=== PATIENT | female | born 1940 | race Caucasian/White ===

== ENCOUNTER 2016-12-27 05:34 | Day surgery (SDC) | payer MEDICARE, BC ==
[2016-12-25 12:31] LABS: HEMATOCRIT 38.2 % (36.0-48.0); HEMOGLOBIN 12.5 g/dL (12-16); MCH 32.7 pg (26.0-34.0); MCHC 32.7 g/dL (31.0-37.0); MEAN PLATELET VOLUME 9.3 fL (7.4-10.4); PLATELET COUNT 231 10x3/uL (130-400); RBC 3.82 10x6/uL (4.00-5.40); RDW 16.1 % (11.5-14.5); WBC 2.5 10x3/uL (4.8-10.8)
[2016-12-25 12:41] LABS: INR 1.04 (0.85-1.17); PROTIME 13.5 SECONDS (11.6-15.0)
[2016-12-25 12:46] LABS: ANION GAP 15.2 mmol/L (8-16); CALCIUM 9.2 mg/dL (8.5-10.1); CARBON DIOXIDE 26.1 mmol/L (21.0-32.0); CREATININE - SERUM 0.9 mg/dL (0.6-1.3); POTASSIUM - SERUM 4.3 mmol/L (3.5-5.1)
[2016-12-25 13:20] LABS: BASOPHILS 1 % (0.0-2.0); EOSINOPHILS 1 % (0-7); LYMPHOCYTES 27 % (15-50); MONOCYTES 6 % (2-11); NEUTROPHILS 65 % (40-80); PLATELET ESTIMATE NORMAL; ROULEAUX OCC
[~2016-12-27] VITALS: Ht 149.9 cm; Wt 103.0 kg
[~2016-12-27 05:34] MED LIST: ATIVAN1 MG PO; FEMARA2.5 MG PO; FUROSEMIDE40 MG PO; GLUCOPHAGE500 MG PO; GLUCOTROL 5 MG T5 MG PO; IBRANCE 125 MG PO; NORVASC10 MG PO; PINDOLOL10 MG PO; ZOCOR20 MG PO
[2016-12-27 06:58] VITALS: BP 144/85; Ht 149.9 cm; Wt 103.0 kg
--- NOTE | 2016-12-27 09:36 | NUR ---
PORT PLACED RIGHT CHEST CONFIRMED WITH XRAY
[2016-12-27] MEDS ORDERED: ULTRAM50 MG PO (09:59)
--- NOTE | 2016-12-27 10:05 | NUR ---
CHRONIC LEFT HIP PAIN. SHE DENIES PAIN IN OPERATIVE SITE.
--- NOTE | 2016-12-27 10:09 | NUR ---
PRE OP BP 164/90
--- NOTE | 2016-12-27 10:20 | NUR ---
THE PATIENT REPORTS SHE USES 4LPM OF O2 AT HOME LEW SHE SLEEPS
--- NOTE | 2017-01-05 07:35 | OP ---
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 OPERATION PERFORMED: Removal of heavily calcified left internal jugular venous access port and catheter and then insertion of new right internal jugular venous access port, a [employer], CT injection capable port under ultrasound and fluoroscopic guidance and all done under local anesthesia with sedation and monitoring per Dr. Spring. MEDICAL ONCOLOGIST: Gonsalo Felix MD PRIMARY CARE PHYSICIAN: Dr. Quiñonez in [place], [place]. PREOPERATIVE NOTE: Ms. Hicks is a 76-year-old white female patient receiving ongoing chemotherapy for metastatic breast cancer. She has a left internal jugular PowerPort venous access device, which has served her well for about 10 years, but now is being difficult to access and she is having associated pain on palpation. There is heavy calcification or mass effect along the course of the subcutaneous catheter and the PowerPort is tethered to the overlying skin quite heavily. She is brought to the operating room at this time with plans to remove and replace it with a new one. The patient was placed on the operating table in supine position, prepped and draped in a sterile manner. She is monitored and sedated by Dr. Spring and as needed, local anesthesia 1% lidocaine with epinephrine and 0.25% Marcaine with epinephrine was infiltrated and the skin and subcutaneous tissues. A transverse incision was placed over the existing port pocket and the port dissected from the surrounding structures. The capsule was found to be heavily calcified and it was excised. The portion of the capsule was sent for culture and a swabs of the port and the attached calcified tissues were taken for aerobic and anaerobic organisms. No tissue was sent for histopathology or other documentation. The catheter was then exposed at the base of the neck through a separate incision and indeed it was very heavily calcified in this area. The area of calcifications were excised and the catheter withdrawn and removed from the field. Her hemostasis was obtained with a suture of 3-0 Vicryl. All of the calcified catheter tract was removed from the subcutaneous tissues between the 2 incisions. Hemostasis was obtained with electrocautery and the use of lidocaine and Marcaine with epinephrine. The wounds were irrigated with Ancef/gentamicin solution and closed with interrupted inverted 3-0 Vicryl and interrupted simple 4-0 Prolene sutures. Pressure dressings were applied. I then used ultrasound to locate the right internal jugular vein. An incision was placed over at the base of the neck and through that incision, needle and guidewire were inserted with continuous ultrasound and then fluoroscopic guidance. A dilator peel-away sheath was then inserted under fluoroscopy over the guidewire. I made a new incision and new port pocket just beneath the right clavicle. Hemostasis obtained with electrocautery and blunt as well as OPERATIVE REPORT [id number] MEGAN HICKS electrocautery dissection used to develop the port pocket. That wound was also infiltrated with lidocaine and Marcaine containing epinephrine for hemostasis. I chose a [employer] Fellows PowerPort and inserted its catheter through the peel-away sheath and positioned the tip of the catheter in the right atrium and the catheter was then placed in a subcutaneous tunnel, coming down to the port pocket. The catheter was shortened and then attached to the port, which was placed in the pocket and sutured in position with 2 interrupted 2-0 Prolene sutures. The wound irrigated with Ancef and gentamicin solution. The port was accessed and aspirated, free return of blood confirmed. It was then flushed with saline and the non-coring needle removed. The wounds were closed with interrupted inverted 3-0 Vicryl and running intracuticular 4-0 Monocryl and Dermabond glue and the wound was dressed with Maxorb Ag, Tegaderm and Cavilon skin prep. The port was accessed and percutaneously again with a non-coring needle, free return of blood confirmed. It was then flushed again with saline and then heparin locked with 100 units of heparin per cc of saline. The needle was removed and the patient in stable condition, was taken to the recovery room. Blood loss during the operation was trivial and unreplaced and all sponges, instruments, and needles were accounted for. No drain was used and no surgical specimen was submitted for histopathology. PLAN: The patient will keep her head elevated the rest of today and tonight, sleeping on at least 2 pillows. She is to use ice off and on the operative north today and tonight to reduce pain, swelling, and bruising. She is to come in to my office next week on Friday or Friday for dressing change and will call or come in to see me sooner if there are any problems or questions. She will resume or continue all of her home medications and we will continue under Dr. Quiñonez and Dr. Felix's care. TRANSINT:[id number] Voice Confirmation ID: [id number] DOCUMENT ID: [id number] ARDEN RAMIREZ MD at 0735 CC: GONSALO FELIX MD and RYLEE QUIÑONEZ MD [id number] DICTATION DATE: 12/27/16 1033 EXERCISE PHYSIOLOGY PROFESSOR: 12/27/16 1259 [facility] 12/27/16 [address] [place] [address]
== END 2016-12-27 11:50 | disposition home or self-care (01) ==
LOC: D.OPS 05:34 → D.PAN 08:00 → D.OPS 08:00
PROVIDERS: Surgery
DX: T82.594A Other mechanical complication of infusion catheter, initial encounter (principal); Y83.8 Other surgical procedures as the cause of abnormal reaction of the patient, or of later complication, without mention of misadventure at the time of the procedure; C50.912 Malignant neoplasm of unspecified site of left female breast; C79.51 Secondary malignant neoplasm of bone; C79.89 Secondary malignant neoplasm of other specified sites

== ENCOUNTER 2017-01-21 22:48 | Observation (INO) | payer MEDICARE, BC ==
[~2017-01-21] VITALS: Ht 151.1 cm; Wt 108.0 kg
[~2017-01-21 22:48] MED LIST changes: +ULTRAM50 MG PO
[2017-01-22 00:24] LABS: BASOPHILS 2.2 % (0-2); HEMATOCRIT 40.7 % (36.0-48.0); HEMOGLOBIN 13.7 g/dL (12-16); IMMATURE GRANULOCYTES 0.2 % (0-5); LYMPHOCYTES 18.3 % (15-50); MCH 34.8 pg (26.0-34.0); MCHC 33.7 g/dL (31.0-37.0); MCV 103.3 fL (80.0-100.0); MEAN PLATELET VOLUME 9.8 fL (7.4-10.4); MONOCYTES 10.3 % (2-11); PLATELET COUNT 234 10x3/uL (130-400); RBC 3.94 10x6/uL (4.00-5.40); RDW 16.8 % (11.5-14.5); WBC 4.1 10x3/uL (4.8-10.8)
[2017-01-22 00:37] LABS: ALBUMIN 3.7 g/dL (3.4-5.0); ANION GAP 15.8 mmol/L (8-16); BILIRUBIN - TOTAL 0.81 mg/dL (0.2-1.3); CALCIUM 9.4 mg/dL (8.5-10.1); CARBON DIOXIDE 24.7 mmol/L (21.0-32.0); POTASSIUM - SERUM 4.5 mmol/L (3.5-5.1); PROTEIN - SERUM 7.6 g/dL (6.4-8.2)
[2017-01-22] MEDS ORDERED: OXYCONTIN10 MG PO (06:10)
[2017-01-22] MEDS ORDERED: BENADRYL25 MG PO (06:11)
[2017-01-22 06:35] VITALS: BP 120/65
[2017-01-22 06:51] VITALS: BP 129/65; BMI 45.3
[2017-01-22 08:40] VITALS: BP 116/69
[2017-01-22 11:05] VITALS: Ht 151.1 cm; Wt 108.0 kg
[2017-01-22 12:31] VITALS: BP 116/67
[2017-01-22 16:13] VITALS: BP 142/77
--- NOTE | 2017-01-22 17:54 | NUR ---
NO COMPLAINTS AT PRESENT. STATES DEMEROL ONLY HELPED FOR SHORT TIME EARILER TODAY. CHEMO GIVEN ORDERED. SPOUSE AT BEDSIDE. HOME MEDICATIONS WILL RESTART AT BEDTIME AND PATIENT AWARE. KARLEE MAT ON FOR SAFETY. CALL LIGHT IN REACH
--- NOTE | 2017-01-22 19:40 | NUR ---
AWAKE ALERT,COMPLAINS OF PAIN TO RIGHT CHEST/ARM AREA. DEMEROL 50 MG GIVEN PER ORDERS. RIGHT PORT SL.WITHOUT REDNESS OR EDEMA IV TO LEFT AC INTACT WIHTOUT REDNESS OR EDEMA NOTED. FAMILY AT BEDSIDE. CL IN REACH.
[2017-01-22 20:00] VITALS: BP 155/68
[2017-01-23] VITALS: BP 140/75
--- NOTE | 2017-01-23 01:30 | NUR ---
RESTING QUIETLY. NO DISTRESS NOTED.
[2017-01-23 04:00] VITALS: BP 138/66
--- NOTE | 2017-01-23 04:55 | NUR ---
RESTING WITH EYES CLOSED, NO DISTRESS NOTED, FALL PRECAUTIONS IN PLACE, CL IN REACH
--- NOTE | 2017-01-23 06:16 | NUR ---
AWAKE,ALERT. NO COMPLAINTS. NO CHANGE IN ASSESSMENT.
--- NOTE | 2017-01-23 08:08 | NUR ---
PT ASSESSMENT COMPLETE AWAKE AND ALERT ORINETD X 3 LUNGS CLEAR BIALTERALLY HAS DIMINISHED SOUNDS BILAT BASES. BSA X 4 QUADS NO ACUTE DISTRESS NOTED VOICES ALL NEEDS TO STAFF CALL LIGHT IN REACH SIDE RAILS UP X 2
[2017-01-23 08:39] VITALS: BP 134/60
[2017-01-23 12:25] VITALS: BP 152/73
--- NOTE | 2017-01-23 12:51 | NUR ---
PT SITTING UP EATING LUNCH MEAL HOB 90 DEGREES NO ACUTE DISTRESS NTOED VOICES ALL NEEDS TO STAFF. CALL LIGHT IN REACH SIDE RAILS UP X 2
--- NOTE | 2017-01-23 15:36 | NUR ---
Patient Name: MEGAN DOHERTY Admission Status: ER Accout number: [id number] Admission Date: 01-22-2017 : 1940 Admission Diagnosis: Attending: PRISCILA Current LOS: 1 Anticipated DC Date: 01-27-2017 Planned Disposition: Home Primary Insurance: MEDICARE A & B Discharge Planning Comments: CM MET WITH PATIENT REGARDING D/C NEEDS AND PLANS. PATIENT STATED SHE LIVES WITH HER SPOUSE (GENEVA) AND HE WILL DRIVE HER HOME AT DISCHARGE. PATIENT STATED SHE HAS A RAMP TO ENTER HOME AND NO STAIRS INSIDE. PATIENT IS INDEPENDENT WITH HER CARE FOR THE MOST PART SHE STATED. PATIENTS SPOUSE HELPS HER WHEN NEEDED. PATIENT HAS A WALKER, WHEELCHAIR, SHOWERCHAIR, POTTY CHAIR, CANE, ROLATOR WALKER, OXYGEN AT HS, AND GLUCOMETER (CHECKS 1X DAY). PATIENT IS CURRENT WITH The car easily beat. PATIENTS PCP IS DR. QUIÑONEZ AND PHARMACY IS [facility] [place]. CM WILL CONTINUE TO FOLLOW PATIENT WITH D/C NEEDS AND PLANS. PCP DR[facility] [place]- [phone] GENEVA (SPOUSE) [phone] OR [phone] Motor Builder Winder: Shanadaren Sal Is the patient Alert and Oriented? Yes 0 * How many steps to enter\exit or inside your home? 0 0 * PCP DR. QUIÑONEZ ([place]) 0 * [facility] [place] 0 * Preadmission Environment Home with Family 0 * ADLs Partial Dependent 0 * Partial ADLs (Assistance needed) Ambulation Medication Management 0 * Equipment Bedside Commode Cane Glucometer Oxygen Rolling Walker Shower Chair Walker Wheelchair 0 * List name and contact numbers for known caregivers / representatives who currently or will assist patient after discharge: GENEVA (SPOUSE) [phone] 0 * Community resources currently utilized Home Health 0 * Please name any agencies selected above. The car easily beat 0 * Additional services required to return to the preadmission environment? Yes 0 * Can the patient safely return to the preadmission environment? Yes 0 * Has this patient been hospitalized within the prior 30 days at any hospital? No 0 Grand Total: 0
[2017-01-23 16:50] VITALS: BP 104/75
--- NOTE | 2017-01-23 16:50 | NUR ---
PT AWAKE AND ALERT ORINETD X 3 NO ACUTE DISTRESS NOTED VOICES ALL NEED TO STAF SPOUSE AT BEDSIDE.
--- NOTE | 2017-01-23 19:18 | NUR ---
PT IN BED RESP EVEN AND NONLABORED SRX2 BED AT LOWEST SETTING CALL LIGHT IN REACH WILL CONTINUE TO MONITOR
[2017-01-23 20:00] VITALS: BP 160/83
--- NOTE | 2017-01-23 20:54 | NUR ---
AWAKE WIHT NO COMPLAITNS. IV INFUSING TO LEFT AC WIHTOUT REDNESS OR EDEMA NOTED. CL IN REACH.
[2017-01-24] VITALS: BP 115/76
--- NOTE | 2017-01-24 01:11 | NUR ---
RESTING QUIETLY. NO DISTRESS NOTED.
[2017-01-24 04:00] VITALS: BP 123/81
--- NOTE | 2017-01-24 04:25 | NUR ---
TEMPS HAVE BEEN LOWER THIS SHIFT. PT SLEEPING NOW. RESP EVEN, UNLABORED. NO DISTRESS NOTED. CONTINUE BRIDAL STYLIST SALES CONSULTANT'S PLAN OF CARE.
--- NOTE | 2017-01-24 06:23 | NUR ---
AWAKE WIHTOUT COMPLAINTS. NO CHANGE IN ASSESSMENT. CL IN REACH.
--- NOTE | 2017-01-24 07:57 | NUR ---
PT ASSESSMENT COMPLETE AWAKE AND ALERT ORIENTED X 3 LUNGS WITH NOTED DIMINISHED BASES BILATERALLY. BSA X 4 QUADS ABDOMEN FIRM AND ROUND. DENIES PAIN AT THIS TIME. ADLS PER STAFF ASSIST. CALL LIGHT IN REACH SIDE RAILS UP X 2
[2017-01-24 08:20] VITALS: BP 152/78
--- NOTE | 2017-01-24 11:14 | NUR ---
pt seen for child and youth program assistant note. infusaport saline lock right chest area with dressing clean dry and intact. low grade fever (high of 99.0) during the night. no complaints at present. call light in reach
--- NOTE | 2017-01-24 12:07 | NUR ---
NUTRITION MONITORING & EVAL CHART REVIEWED. PT VISIT. TOLERATING ADA DIET, 100% INTAKE BREAKFAST. PT REPORTS GOOD APPETITE, PO INTAKE. RD FOLLOWING
[2017-01-24 12:58] VITALS: BP 169/77
--- NOTE | 2017-01-24 13:54 | NUR ---
NO ACUTE DISTRESS NOTED RESTING WELL IN BED CALL LIGHT IN REACH HARME[place] RAILS UP X 2 FAMILY AT BEDSIDE.
--- NOTE | 2017-01-24 14:55 | NUR ---
REPORT RECEIVED FROM SLOANE CORTEZ.
[2017-01-24 16:19] VITALS: BP 134/75
--- NOTE | 2017-01-24 17:17 | NUR ---
IV TO LEFT FORERAM DC'D WITH TIP INTACT.
[2017-01-24 23:54] VITALS: BP 122/71
== END 2017-01-24 19:00 | disposition home health service (06) ==
LOC: D.ER 22:48 → D.MS 01-22 02:29 → OBSVTIME 01-22 02:29 → D.MS 01-24 19:00
PROVIDERS: Emergency Medicine Emergency Medical Services; ADMIT Legal Medicine
DX: R50.9 Fever, unspecified (principal); M79.601 Pain in right arm; C50.919 Malignant neoplasm of unspecified site of unspecified female breast; C78.7 Secondary malignant neoplasm of liver and intrahepatic bile duct; E11.9 Type 2 diabetes mellitus without complications; I10 Essential (primary) hypertension

== ENCOUNTER → 2017-11-06 11:39 | Outpatient (CLI) | payer MEDICARE, BC ==
[2017-01-22 11:05] VITALS: BMI 45.2
[~2017-11-06 11:39] MED LIST changes: +BENADRYL25 MG PO; +OXYCONTIN10 MG PO
== END | disposition home or self-care (01) ==
LOC: D.CT 11:39
DX: Z85.3 Personal history of malignant neoplasm of breast (principal)

== ENCOUNTER 2017-11-25 03:11 | Inpatient (IN) | payer MEDICARE, BC ==
[~2017-11-25] VITALS: Ht 149.9 cm; Wt 108.9 kg
[2017-11-25 04:22] LABS: BASOPHILS 0.2 % (0-2); EOSINOPHILS 0.6 % (0-7); HEMATOCRIT 37.3 % (36.0-48.0); HEMOGLOBIN 12.8 g/dL (12-16); IMMATURE GRANULOCYTES 1.3 % (0-5); LYMPHOCYTES 11.3 % (15-50); MCH 39.3 pg (26.0-34.0); MCHC 34.3 g/dL (31.0-37.0); MCV 114.4 fL (80.0-100.0); MEAN PLATELET VOLUME 9.6 fL (7.4-10.4); MONOCYTES 15.6 % (2-11); PLATELET COUNT 135 10x3/uL (130-400); RBC 3.26 10x6/uL (4.00-5.40); RDW 15.5 % (11.5-14.5); WBC 4.8 10x3/uL (4.8-10.8)
[2017-11-25 04:34] LABS: APPEARANCE CLEAR (CLEAR); BILIRUBIN NEGATIVE (NEGATIVE); COLOR DK YELLOW (YELLOW); GLUCOSE 100 mg/dL (NEGATIVE); KETONE NEGATIVE (NEGATIVE); NITRITE NEGATIVE (NEGATIVE); PROTEIN 1+ mg/dL (NEGATIVE); SPECIFIC GRAVITY 1.015 (1.005-1.020)
[2017-11-25 04:36] LABS: BACTERIA FEW /hpf (NONE SEEN); EPITHELIAL CELLS 0-5 /hpf (0-5); RED CELLS - URINE 0-5 /hpf (0-5); WHITE CELLS - URINE 0-5 /hpf (0-5)
[2017-11-25 04:38] LABS: ALBUMIN 3.2 g/dL (3.4-5.0); ALKALINE PHOSPHATASE 133 U/L (46-116); ALT (SGPT) 55 U/L (10-68); CALC OSMOLALITY 277 mosm/kg (275-300); CALCIUM 8.2 mg/dL (8.5-10.1); CARBON DIOXIDE 32.4 mmol/L (21.0-32.0); CHLORIDE - SERUM 93 mmol/L (98-107); CREATININE - SERUM 0.7 mg/dL (0.6-1.3); GLUCOSE 183 mg/dL (74-106); POTASSIUM - SERUM 3.1 mmol/L (3.5-5.1); PROTEIN - SERUM 6.3 g/dL (6.4-8.2); SODIUM 137 mmol/L (136-145); UREA NITROGEN 11 mg/dL (7-18); eGFR NON AFRICAN AMERICAN 86 mL/min (90-120)
[2017-11-25 04:55] VITALS: BMI 48.6
[2017-11-25 08:13] VITALS: BP 129/85
[2017-11-25 12:53] VITALS: BP 140/79
[2017-11-25 13:47] VITALS: Ht 149.9 cm; Wt 108.9 kg
[2017-11-25 16:18] VITALS: BP 138/78
[2017-11-25 21:30] VITALS: BP 144/63
[2017-11-26 04:36] VITALS: BP 164/91
[2017-11-26 08:00] VITALS: BP 146/83
[2017-11-26 12:09] VITALS: BP 155/81
[2017-11-26 16:50] VITALS: BP 141/79
[2017-11-26 22:53] VITALS: BP 151/71
[2017-11-27 04:00] VITALS: BP 135/77
[2017-11-27 08:08] VITALS: BP 127/63
[2017-11-27 11:43] VITALS: BP 147/74
[2017-11-27 15:41] VITALS: BP 141/77
[2017-11-27 22:13] VITALS: BP 137/86
[2017-11-28 01:16] VITALS: BP 155/99
[2017-11-28 05:14] VITALS: BP 170/100
[2017-11-28 08:12] VITALS: BP 156/91
[2017-11-28 12:30] VITALS: BP 150/74
[2017-11-28 15:58] VITALS: BP 151/86
[2017-11-28 20:00] VITALS: BP 152/92
[2017-11-29 01:58] VITALS: BP 156/86
[2017-11-29 05:24] VITALS: BP 158/78
[2017-11-29 07:06] VITALS: BP 126/90
[2017-11-29 11:04] VITALS: BP 169/80
[2017-11-29 15:11] VITALS: BP 131/71
[2017-11-29 21:12] VITALS: BP 166/104
[2017-11-30 00:59] VITALS: BP 156/86
[2017-11-30 05:05] VITALS: BP 170/89
[2017-11-30 08:24] VITALS: BP 174/91
[2017-11-30 12:10] VITALS: BP 168/91
[2017-11-30 16:39] VITALS: BP 136/81
[2017-11-30 22:35] VITALS: BP 181/88
[2017-12-01 01:02] VITALS: BP 172/97
[2017-12-01 07:28] VITALS: BP 169/91
[2017-12-01 11:45] VITALS: BP 144/71
[2017-12-01 15:45] VITALS: BP 150/75
[2017-12-01 23:40] VITALS: BP 179/93
[2017-12-02 08:51] VITALS: BP 149/94
[2017-12-02 13:24] VITALS: BP 181/104
[2017-12-02 14:01] VITALS: BP 173/92
[2017-12-02 15:45] VITALS: BP 128/86
[2017-12-02 23:07] VITALS: BP 151/77
[2017-12-03 05:23] VITALS: BP 154/74
[2017-12-03 08:45] VITALS: BP 120/87
[2017-12-03 12:45] VITALS: BP 150/83
[2017-12-03 16:43] VITALS: BP 154/82
[2017-12-03 22:09] VITALS: BP 156/75
[2017-12-04 01:29] VITALS: BP 173/86
[2017-12-04 04:33] VITALS: BP 184/84
[2017-12-04 08:45] VITALS: BP 170/91
[2017-12-04 12:08] VITALS: BP 155/82
[2017-12-04 16:17] VITALS: BP 165/76
[2017-12-04 20:00] VITALS: BP 176/90
[2017-12-05 04:00] VITALS: BP 172/93
[2017-12-05 08:43] VITALS: BP 155/60
[2017-12-05] MEDS ORDERED: AMBIEN5 MG PO (11:17)
[2017-12-05] MEDS ORDERED: LISINOPRIL10 MG PO (11:17)
[2017-12-05] MEDS ORDERED: DECADRON4 MG PO (11:18)
[2017-12-05 12:46] VITALS: BP 148/93
[2018-02-18] MEDS ORDERED: DURAGESIC1 PATCH .7 TRANSDERM (02:12)
[2018-02-18] MEDS ORDERED: MIRALAX17 GM PO (02:34)
[2018-02-18] MEDS ORDERED: SENNA LAXATIVE8.6 MG PO (02:35)
[2018-02-18] MEDS ORDERED: OXYBUTYNIN15 MG/BOTT PO (02:38)
== END 2017-12-05 14:35 | disposition home health service (06) | DRG 55 ==
LOC: D.ER 03:11 → OBSVTIME 03:58 → D.MS 03:58 → D.SDCHOLD 15:38 → D.MS 11-28 09:26
PROVIDERS: Emergency Medicine
PROC: 0T9B70Z Drainage of Bladder with Drainage Device, Via Natural or Artificial Opening (ICD-10-PCS; principal; 2017-11-27)
DX: C79.31 Secondary malignant neoplasm of brain (principal); N39.0 Urinary tract infection, site not specified; C78.7 Secondary malignant neoplasm of liver and intrahepatic bile duct; R53.1 Weakness; C50.919 Malignant neoplasm of unspecified site of unspecified female breast; Z99.3 Dependence on wheelchair

== ENCOUNTER 2018-03-26 22:38 | Emergency (ER) | payer MEDICARE, MEDICAID ==
[~2018-03-26] VITALS: Ht 149.9 cm; Wt 113.6 kg
[~2018-03-26 22:38] MED LIST changes: +AMBIEN5 MG PO; +DECADRON4 MG PO; +DURAGESIC1 PATCH .7 TRANSDERM; +LISINOPRIL10 MG PO; +MIRALAX17 GM PO; +OXYBUTYNIN15 MG/BOTT PO; +SENNA LAXATIVE8.6 MG PO
[2018-03-26 22:42] VITALS: Ht 149.9 cm; Wt 113.6 kg
[2018-03-27 10:41] VITALS: BP 106/57
== END 2018-03-27 10:08 | disposition home or self-care (01) ==
LOC: D.ER 22:38
DX: M79.605 Pain in left leg (principal); C71.9 Malignant neoplasm of brain, unspecified; C79.51 Secondary malignant neoplasm of bone; C79.81 Secondary malignant neoplasm of breast; I10 Essential (primary) hypertension